=== PATIENT | female | born 1960 | race Caucasian/White ===

== ENCOUNTER 2023-08-12 20:31 | Emergency (ER) | payer MEDICARE, OTHER ==
[2023-08-12] MEDS ORDERED: fentaNYL 50 mcg/mL 1 mL Vial ONE (22:20)
[2023-08-12] MEDS ORDERED: Ketorolac Tromethamine 30 MG (1 mL) VIAL ONE (22:20)
[2023-08-12] MEDS ORDERED: LORazepam 2 MG/ML SYR.(CARPUJECT) ONE (22:21)
== END 2023-08-12 23:10 | disposition home or self-care (01) ==
LOC: ERS 20:31
DX: M62.838 Other muscle spasm (principal); I10 Essential (primary) hypertension
CPT/HCPCS: 72125; J2060; J3010; 96374; 96375; J1885

== ENCOUNTER 2023-12-31 10:25 | Outpatient (CLI) | payer MEDICARE, OTHER ==
[2023-12-31 11:26] LABS: #Basophils 0.02 10x3/uL (0.0-0.2); #Eosinphils 0.21 10x3/uL (0.0-0.5); #Neutrophils 4.94 10x3/uL (1.5-8.4); %Basophils 0.3 % (0.0-2.0); %Eosinophils 2.6 % (0.0-6.0); %Lymphocytes 24.6 % (18.0-47.0); %Monocytes 10.1 % (0.0-10.0); %Neutrophils 62.1 % (40.0-75.0); Hematocrit 37.5 % (34.9-44.5); Hemoglobin 12.4 g/dL (12.0-15.5); Mean Corpuscular HGB CONC 33.1 g/dL (32.0-36.0); Mean Corpuscular Hemoglobin 29.7 pg (27.0-33.0); Mean Corpuscular Volume 89.7 fL (81.6-98.3); Mean Platelet Volume 10.9 fL (7.4-10.4); Platelet Count 142 10x3/uL (150-450); RBC Distribution Width 14.6 % (11.5-14.5); Red Blood Cell (RBC) Count 4.18 10x6/uL (3.90-5.03); White Blood Cell (WBC) Count 7.9 10x3/uL (3.5-10.5)
[2023-12-31 12:04] LABS: ALT (SGPT) 17 U/L (8-55); AST (SGOT) 25 U/L (5-34); Albumin 3.4 g/dL (3.4-4.8); Alkaline Phosphatase 66 U/L (40-110); Anion Gap 11 mmol/L (10-20); BUN (Urea Nitrogen) 14 mg/dL (9.8-20.1); Bilirubin, Direct 0.2 mg/dL (0.1-0.3); Bilirubin, Total 0.5 mg/dL (0.2-1.2); Calc. Creatinine Clearance 0 mL/min (70-130); Calcium 9.3 mg/dL (7.8-10.44); Carbon Dioxide 27 mmol/L (23-31); Cardiac Risk 2.6 (Less than 4.5); Chloride 106 mmol/L (98-107); Cholesterol 132 mg/dl (< 200 Desired); Estimated GFR 78; Globulin 3.6 g/dL (2.4-3.5); Glucose 104 mg/dL (80-115); HDL Cholesterol 51 mg/dL (>60 Neg Risk); LDL Cholesterol, Calculated 54 mg/dL; Potassium 4.5 mmol/L (3.5-5.1); Sodium 139 mmol/L (136-145); Triglycerides 133 mg/dL (Less than 150)
== END 2023-12-31 10:26 | disposition home or self-care (01) ==
LOC: LABBT 10:25
PROVIDERS: ATTEND Internal Medicine Cardiovascular Disease
DX: Z01.812 Encounter for preprocedural laboratory examination (principal)
CPT/HCPCS: 80053; 80061; 80076; 85025

== ENCOUNTER 2024-01-09 09:40 | Observation (INO) | payer MEDICARE, OTHER ==
[2024-01-09] MEDS ORDERED: Iopamidol 370 76% 100 ML VIAL ONE ×2 (12:04→12:20)
[2024-01-09] MEDS ORDERED: Heparin 10,000 UNITS/ 10 ML VIAL ONE ×2 (12:39→14:02)
[2024-01-09] MEDS ORDERED: fentaNYL 50 mcg/mL 1 mL Vial ONE ×6 (13:15→15:43)
[2024-01-09] MEDS ORDERED: Verapamil 5 MG/2 ML VIAL ONE (13:15)
[2024-01-09] MEDS ORDERED: Midazolam HCl 2 mg/2 ml Vial ONE ×2 (13:15→13:53)
[2024-01-09] MEDS ORDERED: Nitroglycerin 50 MG/250 ML BOT 250 ML ONE (13:15)
[2024-01-09] MEDS ORDERED: TICAGRELOR 90 MG TABLET ONE (14:10)
[2024-01-09] MEDS: oxyCODONE ER 20 MG TAB PO SCH ×2 (15:54→22:31)
[2024-01-09] MEDS ORDERED: hydrALAZINE 20 MG/ML VIAL ONE (17:11)
[2024-01-09] MEDS ORDERED: Atropine Sulfate 1 mg/10 ml Syringe ONE ×2 (17:21→17:22)
[2024-01-09 19:08] VITALS: BMI 39.1
[2024-01-09] MEDS: tiZANidine HCl 4 MG TAB PO SCH (20:08)
[2024-01-09] MEDS: Lisinopril 10 MG TAB PO SCH (20:09)
[2024-01-09] MEDS: Zolpidem Tartrate 5 MG TAB PO SCH (20:09)
[2024-01-09] MEDS: Pregabalin 50 MG CAP PO SCH (20:10)
[2024-01-09] MEDS: Rosuvastatin 20 MG TAB PO SCH (20:10)
[2024-01-09] MEDS: HYDROcodone/Acetaminophen 10/325 mg Tablet PO SCH (20:11)
[2024-01-09] MEDS ORDERED: RUXOLITINIB PHOSPHATE TOP SCH (21:00)
[2024-01-09] MEDS: Ondansetron PF 4 MG/2 ML Vial IVP PRN (21:40)
[2024-01-09] MEDS: TICAGRELOR 90 MG TABLET PO SCH (22:31)
[2024-01-09] MEDS: HYDROcodone/Acetaminophen 10/325 mg Tablet PO PRN (23:30)
[2024-01-10 04:21] VITALS: TEMP 98.2
[2024-01-10] MEDS: CeleCOXIB 100 MG CAP PO SCH (08:53)
[2024-01-10] MEDS: Cholecalciferol 1,000 UNITS (25 MCG) TAB PO SCH (08:53)
[2024-01-10] MEDS: Ferrous Sulfate 325 MG TAB PO SCH (08:57)
[2024-01-10] MEDS: Amlodipine 5 MG TAB PO SCH (08:57)
[2024-01-10] MEDS: DULoxetine 60 MG CAP PO SCH (08:57)
[2024-01-10] MEDS: Aspirin 81 mg Enteric Coated Tablet PO SCH (08:59)
[2024-01-10] MEDS: Leflunomide 10 mg Tablet PO SCH (08:59)
[2024-01-10] MEDS ORDERED: INFLIXIMAB 100 MG FS SCH (09:00)
[2024-01-10] MEDS ORDERED: DUPILUMAB 300 MG/2 ML SC SCH (09:00)
[2024-01-10] MEDS: Calcium Carbonate 600 MG + Vit D TAB PO SCH (09:01)
[2024-01-10 13:05] VITALS: BP 109/53
== END 2024-01-10 15:47 | disposition home or self-care (01) ==
LOC: CCL 09:40 → 2SE 14:56
PROVIDERS: ADMIT Internal Medicine Cardiovascular Disease; ATTEND Internal Medicine Cardiovascular Disease
PROC: 4A023N7 Measurement of Cardiac Sampling and Pressure, Left Heart, Percutaneous Approach (ICD-10-PCS; principal; 2024-01-09)
DX: I25.84 Coronary atherosclerosis due to calcified coronary lesion (principal); R94.39 Abnormal result of other cardiovascular function study; E78.00 Pure hypercholesterolemia, unspecified; I49.3 Ventricular premature depolarization; I83.90 Asymptomatic varicose veins of unspecified lower extremity; M79.604 Pain in right leg; I71.40 Abdominal aortic aneurysm, without rupture, unspecified; I10 Essential (primary) hypertension; Z79.899 Other long term (current) drug therapy
CPT/HCPCS: 85347 ×2; 93005; 93452; 93458; C1725; C1769 ×4; C1874; C1887; C1894 ×2; C9600; J0360; J0461; J1644; J2250; J2405 ×2; J3010; 92928; 92972; 93010; 99152; 99153; C1761; Q9967